=== PATIENT | female | born 1970 | race Asian ===

== ENCOUNTER 2024-11-08 12:44 | Emergency (ER) | payer MEDICAID ==
[~2024-11-08] VITALS: Ht 149.9 cm; Wt 54.0 kg
[2024-11-08 12:58] VITALS: O2SAT 99
[2024-11-08 15:08] LABS: BASOPHILS % 0.9 % (0.0-2.0); EOSINOPHILS % 1.6 % (0.0-5.0); HEMATOCRIT. 41.0 % (36.0-48.0); HEMOGLOBIN. 13.7 g/dL (12.0-16.0); LYMPHOCYTES % 29.3 % (20.0-50.0); MEAN PLATELET VOLUME 6.7 fl (7.4-10.4); MONOCYTES % 6.0 % (2.0-8.0); NEUTROPHILS % 62.2 % (40.0-76.0); PLATELET 415 x1000/uL (130-400); RED BLOOD CELL COUNT 4.27 mill/uL (4.2-5.4); RED CELL DISTRIBUTION WIDTH 13.0 % (11.6-14.6)
[2024-11-08 15:26] LABS: CREATININE 0.5 mg/dL (0.6-1.0); TROPONIN I HIGH SENSITIVITY 9 ng/L (3.0-34); UREA NITROGEN BLOOD 6 mg/dL (9-23)
[2024-11-08] MEDS ORDERED: AMLO5TAB6 MT (15:48)
[2024-11-08 16:16] VITALS: BP 159/103; PULSE 73; RESP 18; TEMP 36.7; O2SAT 99
== END 2024-11-08 16:18 | disposition home or self-care (01) ==
LOC: ER 12:44
DX: I10 Essential (primary) hypertension (principal); Z59.71 Insufficient health insurance coverage; Z79.899 Other long term (current) drug therapy
CPT/HCPCS: 36415; 80048; 83735; 84484; 85025; 99283